=== PATIENT | female | born 1985 | race African-American/Black ===

== ENCOUNTER 2017-04-20 23:29 | Emergency (ER) | payer BC, OTHER ==
[~2017-04-20] VITALS: Ht 154.9 cm; Wt 68.0 kg
[~2017-04-20 23:29] MED LIST: COLACE 100 MG100 MG PO; IBUPROFEN 600600 M1 PO; IRON325 PO; LANOLIN56 GM; MACROBID 100 M100 M1 PO; MONONESSA1 EACH PO; PRENATAL PO; PYRIDIUM200 MG PO; SENNA PO; TUCKS MEDICATE1 EAC1
[2017-04-21 00:11] LABS: ABSOLUTE NEUTROPHILS 6.7 thou/uL (1.4-8.2); BASOPHILS 0.7 % (0.0-2.0); EOSINOPHILS 0.4 % (0.0-3.0); HEMATOCRIT 37.5 % (37.0-47.0); HEMOGLOBIN 12.7 gm/dL (12.0-15.0); LYMPHOCYTES 27.3 % (24.0-44.0); MCH 27.6 pg (26.0-34.0); MCHC 33.9 g/dL (28.0-37.0); MCV 81.4 fL (80.0-100.0); MONOCYTES 7.4 % (1.0-8.0); PLATELET COUNT 317 thou/uL (150-400); POLYS 64.2 % (36.0-66.0); RBC 4.61 mil/uL (4.20-5.00); RDW 13.3 % (10.5-14.5); WBC 10.5 thou/uL (4.0-11.0)
[2017-04-21 00:14] LABS: CALCIUM 8.8 mg/dL (8.5-10.1); CREATININE 0.9 mg/dL (0.6-1.0); POTASSIUM 3.5 mmol/L (3.5-5.1)
[2017-04-21 00:21] LABS: ALBUMIN 3.2 g/dL (3.4-5.0); DIRECT BILIRUBIN 0.1 mg/dL (<0.1-0.3); TOTAL BILIRUBIN 0.4 mg/dL (<0.1-1.0); TOTAL PROTEIN 7.5 g/dL (6.4-8.2)
[2017-04-21] MEDS ORDERED: PRILOSEC 20 MG20 MG PO (02:45)
[2017-04-21] MEDS ORDERED: ULTRAM 50MG TAB50 MG PO (02:45)
== END 2017-04-21 02:54 | disposition home or self-care (01) ==
LOC: ER 23:29
PROVIDERS: Emergency Medicine
DX: K80.20 Calculus of gallbladder without cholecystitis without obstruction (principal); F90.9 Attention-deficit hyperactivity disorder, unspecified type; Z91.018 Allergy to other foods

== ENCOUNTER 2017-05-04 17:20 | Emergency (ER) | payer BC, OTHER ==
[~2017-05-04] VITALS: Ht 154.9 cm; Wt 68.0 kg
[~2017-05-04 17:20] MED LIST changes: +PRILOSEC 20 MG20 MG PO; +ULTRAM 50MG TAB50 MG PO
[2017-05-04 17:46] LABS: URINE BILIRUBIN NEGATIVE (Negative); URINE BLOOD NEGATIVE (Negative); URINE CLARITY CLEAR; URINE COLOR YELLOW; URINE GLUCOSE-RANDOM* NEGATIVE (Negative); URINE KETONES NEGATIVE (Negative); URINE NITRITE-REFLEX NEGATIVE (Negative); URINE PROTEIN (DIPSTICK) NEGATIVE (Negative); URINE SPECIFIC GRAVITY 1.015 (1.005-1.035); URINE UROBILINOGEN 0.2 E.U./dl (0.2-1.0)
[2017-05-04 17:48] LABS: URINE LEUKOCYTES-REFLEX 1+ (Negative)
[2017-05-04 17:56] LABS: SQUAMOUS 4-10 Moderate /LPF (0-3)
[2017-05-04 17:57] LABS: AMORPHOUS URATES Few /LPF (None Seen); BACTERIA-REFLEX None Seen /HPF (None Seen); CASTS None Seen /LPF (None Seen); URINE RBC 0-2 Rare /HPF (0-2); URINE WBC-REFLEX 6-15 Few /HPF (0-5)
[2017-05-04] MEDS ORDERED: ZOFRAN ODT8 MG PO (18:00)
[2017-05-04] MEDS ORDERED: TRAMADOL 50 MG50 MG PO (18:00)
== END 2017-05-04 20:23 | disposition home or self-care (01) ==
LOC: ER 17:20
PROVIDERS: Emergency Medicine
DX: K80.20 Calculus of gallbladder without cholecystitis without obstruction (principal); F90.9 Attention-deficit hyperactivity disorder, unspecified type; F10.99 Alcohol use, unspecified with unspecified alcohol-induced disorder; Z91.018 Allergy to other foods